=== PATIENT | female | born 1995 | race Native Hawaiian/Other Pacific Islander ===

== ENCOUNTER 2017-08-27 22:30 | Emergency (ER) | payer SELFPAY ==
[2017-08-27 23:49] VITALS: BP 91/69
== END 2017-08-28 07:35 | disposition left against medical advice (07) ==
LOC: ED 22:30
DX: R10.9 Unspecified abdominal pain (principal); Z53.21 Procedure and treatment not carried out due to patient leaving prior to being seen by health care provider